=== PATIENT | female | born 1960 | race Caucasian/White ===

== ENCOUNTER 2025-01-20 10:46 | Observation (INO) ==
[2025-01-20] MEDS: PROVENTIL NEB TX 0.083% 2.5MG/ 3ML NEB PRN (14:06)
[2025-01-20] MEDS ORDERED: PROVENTIL NEB TX 0.083% 2.5MG/ 3ML NEB PRN (14:43)
[2025-01-20] MEDS ORDERED: ALPRAZOLAM ODT PO PRN (14:43)
[2025-01-20] MEDS ORDERED: PERCOCET TAB 5/325 MG PO PRN (14:45)
[2025-01-20 14:58] LABS: MEAN PLATELET VOLUME 6.7 fL (7.4-11.0); RED CELL DISTRIBUTION WIDTH 16.1 % (11.6-16.5)
[2025-01-20 15:05] VITALS: BMI 24.7
[2025-01-20 15:06] LABS: CREATININE 1.10 mg/dL (0.55-1.02); eGFR NON BLACK RACES 53 (>60)
[2025-01-20] MEDS: PERCOCET TAB 5/325 MG PO PRN (15:12)
[2025-01-20] MEDS: LR 1,000 ML IV 1,000 ML IV SCH (15:13)
--- NOTE | 2025-01-20 17:03 | CT ---
EXAM: CTA AORTA WITH RUNOFF HISTORY: SEVERE REST PAIN LEFT LEG; COMPARISON: None. TECHNIQUE: Axial CT images of the abdomen, pelvis and lower extremities were obtained prior to and after the administration of 150 mL Omnipaque IV contrast during the arterial phase. Images were reformatted with a 3D angiographic technique for further evaluation. Radiation dose: 1013.98 mGy-cm total DLP FINDINGS: Aorta: Atherosclerotic changes with no aneurysm. No clinically significant stenosis or occlusion. Mesenteric arteries/Celiac trunk: No clinically significant stenosis, occlusion or aneurysm. Renal arteries: No clinically significant stenosis, occlusion or aneurysm. Right iliac arteries: Atherosclerotic changes. No clinically significant stenosis, occlusion or aneurysm. Left iliac arteries: Atherosclerotic changes. No clinically significant stenosis, occlusion or aneurysm. Right femoral arteries/popliteal artery: Mild atherosclerotic changes involving the [employer]. No clinically significant stenosis, occlusion or aneurysm. Left femoral arteries/popliteal artery: Mild atherosclerotic changes involving the [employer]. No clinically significant stenosis, occlusion or aneurysm. Right infrapopliteal arteries: Atherosclerotic changes. No occlusion or aneurysm. 3 vessel runoff. Left infrapopliteal arteries: Atherosclerotic changes. No occlusion or aneurysm. 3 vessel runoff. Atelectasis or scarring at the lung bases. No acute osseous abnormality. Xjer-hj-orhuuywt multilevel degenerative disc and joint changes. Posterior fusion hardware in place at L4-L5. Stomach and proximal small bowel appear normal. Solid visceral organs of the upper abdomen are unremarkable. Gallbladder appears normal. No biliary dilatation. Punctate nonobstructing bilateral nephroliths. Otherwise, unremarkable appearance of the kidneys and ureters. Urinary bladder is unremarkable. Colonic diverticulosis without diverticulitis. Otherwise, unremarkable appearance of the large and small bowel. Cjjmondw-[id number] stool burden in the colon. No evidence of acute appendicitis. Status post hysterectomy. No pneumoperitoneum. No free intra-abdominal fluid. No adenopathy. IMPRESSION: 1. No acute intra-abdominal abnormality identified. 2. Mild atherosclerotic changes to the abdominal aorta and iliac vessels without aneurysm or clinically significant stenosis. Mild atherosclerotic changes involving the common femoral arteries. No clinically significant stenosis, occlusion or aneurysm identified involving the arterial structures throughout both lower extremities; including normal bilateral three-vessel runoffs. 3. Colonic diverticulosis without diverticulitis. 4. Jbrwuhou-dx-awoeb stool burden in the colon. 5. Nonobstructing punctate bilateral nephroliths. THIS IS AN ELECTRONICALLY VERIFIED FINAL REPORT 01/20/2025 5:00 PM - Electronically signed by Abrahan Gregory MD
[2025-01-20] MEDS: REQUIP PO SCH (21:01)
[2025-01-21] MEDS: ZOFRAN INJ 4 MG VIAL IVP PRN (05:08)
[2025-01-21] MEDS: COZAAR PO SCH (08:24)
[2025-01-21] MEDS: ZOLOFT PO SCH (08:24)
[2025-01-21] MEDS: ASPIRIN EC 81 MG PO SCH (08:24)
[2025-01-21] MEDS: PROTONIX TAB 40 MG PO SCH (08:24)
[2025-01-21] MEDS: ZOLOFT ONE (08:40)
[2025-01-21 08:54] VITALS: O2SAT 98
[2025-01-21] MEDS ORDERED: KETAMINE HCL ONE (09:15)
[2025-01-21] MEDS ORDERED: PRECEDEX INJ VIAL ONE (09:15)
[2025-01-21] MEDS ORDERED: XYLOCAINE 2 % (PLAIN) ONE (09:15)
[2025-01-21 12:00] VITALS: BP 119/74; PULSE 88; TEMP 97.4
--- NOTE | 2025-01-21 12:55 | W.DIS.FURT ---
Summary of Discharge Discharge Summary of Date Date of Exam: 01/21/25 Admission Date Date of Admission: 01/20/25 Admission Diagnosis Hospital Course: This is a 85-year-old female who had bilateral lower extreme arterial interventions in the past. She presented to the office yesterday complaining of severe pain of the left leg for 2 months. I could not palpate distal pulses at that time. She has been told in the past that I thought her pain may be coming on her back. She had refused epidural steroid shots. She presented and had severe pain and underwent CT angiogram showing arterial flow to be normal both sides. I have recommended that she consult her back surgeon again and reconsider the treatment plan that they had offered her. I will see her in regular follow-up which is already been done through my office. Vital Signs: Vital Signs (72 hours) 01/20/25 13:55 01/20/25 14:06 01/20/25 14:15 Temperature 97.7 F Pulse Rate 76 Pulse Rate [Right] 79 Respiratory Rate 17 Blood Pressure [Left Arm] 141/89 Blood Pressure [Right Arm] O2 Sat by Pulse Oximetry 95 98 Oxygen Delivery Method Room Air Room Air FIO2% 01/20/25 15:12 01/20/25 15:40 01/20/25 16:12 Temperature 97.7 F Pulse Rate Pulse Rate [Right] 62 Respiratory Rate 17 17 16 Blood Pressure [Left Arm] 143/88 Blood Pressure [Right Arm] O2 Sat by Pulse Oximetry 97 Oxygen Delivery Method Room Air FIO2% 01/20/25 19:00 01/20/25 20:00 01/20/25 20:10 Temperature 97.8 F Pulse Rate 68 Pulse Rate [Right] 67 Respiratory Rate 17 Blood Pressure [Left Arm] Blood Pressure [Right Arm] 123/92 O2 Sat by Pulse Oximetry 95 97 Oxygen Delivery Method Room Air Room Air FIO2% 01/20/25 20:10 01/20/25 21:01 01/20/25 22:01 Temperature Pulse Rate Pulse Rate [Right] Respiratory Rate 17 17 Blood Pressure [Left Arm] Blood Pressure [Right Arm] O2 Sat by Pulse Oximetry Oxygen Delivery Method Room Air FIO2% 01/21/25 00:00 01/21/25 00:25 01/21/25 03:20 Temperature 97.4 F L Pulse Rate Pulse Rate [Right] 92 H Respiratory Rate 17 18 Blood Pressure [Left Arm] 178/99 158/80 Blood Pressure [Right Arm] O2 Sat by Pulse Oximetry 92 L Oxygen Delivery Method Room Air FIO2% 01/21/25 04:00 01/21/25 04:20 01/21/25 07:00 Temperature 97.5 F L Pulse Rate Pulse Rate [Right] 68 Respiratory Rate 17 18 Blood Pressure [Left Arm] Blood Pressure [Right Arm] 135/87 O2 Sat by Pulse Oximetry 94 L Oxygen Delivery Method Room Air Room Air FIO2% 01/21/25 08:00 01/21/25 08:32 01/21/25 08:45 Temperature 97.8 F Pulse Rate Pulse Rate [Right] 73 Respiratory Rate 20 20 Blood Pressure [Left Arm] 140/85 Blood Pressure [Right Arm] O2 Sat by Pulse Oximetry 98 Oxygen Delivery Method Room Air Room Air FIO2% 21 01/21/25 09:32 01/21/25 12:00 Temperature 97.4 F L Pulse Rate Pulse Rate [Right] 88 Respiratory Rate 20 19 Blood Pressure [Left Arm] 119/74 Blood Pressure [Right Arm] O2 Sat by Pulse Oximetry 98 Oxygen Delivery Method Room Air FIO2% Labs: Laboratory Last Values WBC 5.6 X10^3/uL (3.6-10.0) 01/20/25 14:09 RBC 5.07 X10^6/uL (3.5-5.4) 01/20/25 14:09 Hgb 14.3 g/dL (12.0-16.0) 01/20/25 14:09 Hct 42.6 % (36.0-47.0) 01/20/25 14:09 MCV 84.1 fL (80.0-100.0) 01/20/25 14:09 MCH 28.3 pg (27.0-34.0) 01/20/25 14:09 MCHC 33.6 g/dL (33.0-35.0) 01/20/25 14:09 RDW 16.1 % (11.6-16.5) 01/20/25 14:09 Plt Count 258 X10^3/uL (150.0-450.0) 01/20/25 14:09 MPV 6.7 fL (7.4-11.0) L 01/20/25 14:09 Neut % (Auto) 58.8 % (42.0-75.0) 01/20/25 14:09 Lymph % (Auto) 26.4 % (21.0-51.0) 01/20/25 14:09 Ramsey % (Auto) 9.7 % (0.0-13.0) 01/20/25 14:09 Eos % (Auto) 4.3 % (0.9-2.9) H 01/20/25 14:09 Baso % (Auto) 0.8 % (0.2-1.0) 01/20/25 14:09 Neut # (Auto) 3.3 x10^3/uL (2.2-4.8) 01/20/25 14:09 Lymph # (Auto) 1.5 X10^3/uL (1.3-2.9) 01/20/25 14:09 Ramsey # (Auto) 0.5 x10^3/uL (0.3-0.8) 01/20/25 14:09 Eos # (Auto) 0.2 x10^3/uL (0.0-0.2) 01/20/25 14:09 Baso # (Auto) 0.0 X10^3/uL (0.0-0.1) 01/20/25 14:09 Absolute Nucleated RBC 0.2 /100WBC 01/20/25 14:09 Sodium 140 mmol/L (136-145) 01/20/25 14:09 Corrected Sodium TNP 01/20/25 14:09 Potassium 4.3 mmol/L (3.5-5.1) 01/20/25 14:09 Chloride 102 mmol/L (98-107) 01/20/25 14:09 Carbon Dioxide 31.6 mmol/L (21-32) 01/20/25 14:09 BUN 36 mg/dL (7-18) H 01/20/25 14:09 Creatinine 1.10 mg/dL (0.55-1.02) H 01/20/25 14:09 Est GFR (MDRD) Af Amer > 60 (>60) 01/20/25 14:09 Est GFR (MDRD) Non-Af 53 (>60) L 01/20/25 14:09 Glucose 75 mg/dL (65-99) 01/20/25 14:09 Calcium 9.2 mg/dL (8.5-10.1) 01/20/25 14:09 Corrected Calcium TNP 01/20/25 14:09 Total Bilirubin 0.30 mg/dL (0.2-1.0) 01/20/25 14:09 AST 12 Units/L (15-37) L 01/20/25 14:09 ALT 20 Units/L (12-78) 01/20/25 14:09 Alkaline Phosphatase 97 Units/L (46-116) 01/20/25 14:09 Total Protein 7.0 g/dL (6.4-8.2) 01/20/25 14:09 Albumin 3.7 g/dL (3.4-5.0) 01/20/25 14:09 Globulin 3.3 g/dL (2.5-4.5) 01/20/25 14:09 Albumin/Globulin Ratio 1.1 Ratio (1.1-2.1) 01/20/25 14:09 Impression: see hospital course Reason For Visit: CRITICAL ISCHEMIA LEFT LEG Discharge Date Discharge Date: 01/21/25 Discharge Diagnosis All Active Problems (Updated 08/15/24 @ 10:13 by Vladimir James) 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 Pt is to keep follow up appointment as instructed and take medications as ordered. Discharge Medications Discharge Medications: prednisone Allergy (Verified 01/20/25 14:15) Sulfa (Sulfonamide Antibiotics) (SULFA) Allergy (Verified 01/20/25 14:15) CONTINUE taking the following medications alprazolam 2 mg tablet 2 mg PO TID PRN 01/20/25 [History] buspirone 7.5 mg tablet 7.5 mg PO BID 01/20/25 [History] fenofibrate 54 mg tablet 54 mg PO QDAY 01/20/25 [History] levothyroxine 100 mcg tablet 100 mcg PO 0630 01/20/25 [History] pregabalin 150 mg capsule 150 mg PO TID 01/20/25 [History] pregabalin 150 mg capsule 150 mg PO TID 01/20/25 [History] Discharge Disposition Assessment: see hospital course Discharge Plan Discharge Plan Hospital Course: This is a 85-year-old female who had bilateral lower extreme arterial interventions in the past. She presented to the office yesterday complaining of severe pain of the left leg for 2 months. I could not palpate distal pulses at that time. She has been told in the past that I thought her pain may be coming on her back. She had refused epidural steroid shots. She presented and had severe pain and underwent CT angiogram showing arterial flow to be normal both sides. I have recommended that she consult her back surgeon again and reconsider the treatment plan that they had offered her. I will see her in regular follow-up which is already been done through my office. Patient Disposition: 01 HOME, SELF-CARE Condition: Stable Health Concerns: Post Hospitalization: new medications and changes needed to prevent readmission or further decline. Pt educated and given instructions on all concerns. Care Plan Goals: Problem: Pain/Alteration in Comfort Goal: Improve/ Resolve Pain; Achieve Pain Tolerance Instructions: Take pain medications as prescribed. Contact your primary care provider if your pain is unrelieved or worsens. Follow up with primary care provider as directed. Plan of Treatment: Continue with present treatment and follow up plan. Pt is to keep follow up appointment as instructed and take medications as ordered. Assessment: see hospital course Prescription drug monitoring program results: PDMP reviewed and no concerns identified Prescriptions: Continued levothyroxine 100 mcg tablet 100 mcg PO 0630 buspirone 7.5 mg tablet 7.5 mg PO BID alprazolam 2 mg tablet 2 mg PO TID PRN pregabalin 150 mg capsule 150 mg PO TID pregabalin 150 mg capsule 150 mg PO TID fenofibrate 54 mg tablet 54 mg PO QDAY aspirin 81 mg Tablet 81 mg PO QDAY albuterol sulfate 90 mcg/actuation Hfa Aerosol Inhaler 2 puff INHALATION Q6H PRN (Reason: Wheezing) losartan 100 mg Tablet 100 mg PO QDAY ropinirole 4 mg Tablet 4 mg PO TID sertraline 100 mg tablet 100 mg PO DAILY omeprazole 40 mg capsule,delayed release(DR/EC) 40 mg PO QDAY rivaroxaban [Xarelto] 2.5 mg tablet 2.5 mg PO BID Orders to Discharge Patient Discharge Orders: Discharge (Routine); Ordered 01/21/25 Ordered By: Vladimir James Follow ups/Referrals Follow ups/Referrals: Vladimir James [Primary Care Provider, Unknown] - 02/01/25 9:45 am Instructions Instructions: Carotid Artery Disease, Poor Blood Flow (Peripheral Vascular Disease): What to Know Stand Alone Forms: Excuse From Work or School, Find Help Web Site, Post Hospital Follow Up Care Print Language: GREEK
[2025-01-21 15:18] VITALS: RESP 20
== END 2025-01-21 16:30 | disposition home or self-care (01) ==
LOC: MED/SURG
PROVIDERS: ADMIT Surgery; ATTEND Surgery
DX: J44.9 Chronic obstructive pulmonary disease, unspecified; I70.222 Atherosclerosis of native arteries of extremities with rest pain, left leg; E78.5 Hyperlipidemia, unspecified; F41.8 Other specified anxiety disorders; Z72.0 Tobacco use; R94.4 Abnormal results of kidney function studies; Z85.850 Personal history of malignant neoplasm of thyroid; K57.30 Diverticulosis of large intestine without perforation or abscess without bleeding; Z59.868 Other specified financial insecurity